=== PATIENT | male | born 1995 | race African-American/Black ===

== ENCOUNTER 2016-09-07 08:57 | Emergency (ER) | payer OTHER ==
[~2016-09-07] VITALS: Wt 70.3 kg
[~2016-09-07 08:57] MED LIST: AMOXICILLIN500 MG PO; BACTRIM DS 8001 TA1 PO; CEPHALEXIN500 M1 PO; CLINDAMYCIN HC300 MG PO; KEFLEX500 MG PO; ULTRAM50 MG PO
[2016-09-07 09:03] VITALS: BP 122/66
== END 2016-09-07 11:19 | disposition home or self-care (01) ==
LOC: ED 08:57
DX: Z20.2 Contact with and (suspected) exposure to infections with a predominantly sexual mode of transmission (principal); Z91.013 Allergy to seafood

== ENCOUNTER 2017-08-28 19:54 | Emergency (ER) | payer OTHER ==
[~2017-08-28] VITALS: Ht 172.7 cm; Wt 71.7 kg
[2017-08-28 19:57] VITALS: BP 130/82
== END 2017-08-28 20:14 | disposition home or self-care (01) ==
LOC: ED 19:54
DX: R11.2 Nausea with vomiting, unspecified (principal); R10.32 Left lower quadrant pain; F17.200 Nicotine dependence, unspecified, uncomplicated; Z91.013 Allergy to seafood

== ENCOUNTER 2017-09-14 18:13 | Emergency (ER) | payer OTHER ==
[~2017-09-14] VITALS: Ht 172.7 cm; Wt 68.0 kg
[2017-09-14 18:17] VITALS: BP 109/63
[2017-09-14] MEDS ORDERED: Peridex 473 ML473 ML PO (18:17)
[2017-09-14] MEDS ORDERED: PENICILLIN VK500 MG PO (18:17)
[2017-09-14] MEDS ORDERED: ZOFRAN4 MG PO (18:17)
[2017-09-14] MEDS ORDERED: NAPROSYN500 MG PO (18:17)
== END 2017-09-14 18:23 | disposition home or self-care (01) ==
LOC: ED 18:13
DX: K02.9 Dental caries, unspecified (principal); Z91.013 Allergy to seafood

== ENCOUNTER 2018-11-07 13:12 | Emergency (ER) | payer SELFPAY ==
[~2018-11-07] VITALS: Ht 172.7 cm; Wt 65.8 kg
[~2018-11-07 13:12] MED LIST changes: +NAPROSYN500 MG PO; +PENICILLIN VK500 MG PO; +Peridex 473 ML473 ML PO; +ZOFRAN4 MG PO
[2018-11-07 13:15] VITALS: BP 121/61
[2018-11-07 14:00] LABS: BILIRUBIN NEGATIVE (NEGATIVE); BLOOD 1+ (NEGATIVE); CLARITY CLEAR (CLEAR); COLOR YELLOW (YELLOW); GLUCOSE NEGATIVE (NEGATIVE); KETONE 2+ (NEGATIVE); LEUKO ESTERASE NEGATIVE (NEGATIVE); NITRITE NEGATIVE (NEGATIVE)
[2018-11-07 14:11] LABS: RBC 16-20 rbc/hpf (0-2)
[2018-11-11 03:04] LABS: GONOCOCCUS BY NAA Negative (Negative)
== END 2018-11-07 15:34 | disposition home or self-care (01) ==
LOC: ED 13:12
PROVIDERS: Nurse Practitioner Family
DX: Z20.2 Contact with and (suspected) exposure to infections with a predominantly sexual mode of transmission (principal); F17.200 Nicotine dependence, unspecified, uncomplicated; Z79.899 Other long term (current) drug therapy; Z91.013 Allergy to seafood

== ENCOUNTER 2019-09-30 13:23 | Emergency (ER) | payer SELFPAY ==
[~2019-09-30] VITALS: Ht 172.7 cm; Wt 68.0 kg
[2019-09-30 13:30] VITALS: BP 117/55
== END 2019-09-30 17:40 | disposition home or self-care (01) ==
LOC: ED 13:23
DX: S27.818A Other injury of esophagus (thoracic part), initial encounter (principal); Z79.899 Other long term (current) drug therapy; Z91.013 Allergy to seafood; Z79.2 Long term (current) use of antibiotics; X58.XXXA Exposure to other specified factors, initial encounter; Y93.89 Activity, other specified; Y92.89 Other specified places as the place of occurrence of the external cause; Y99.8 Other external cause status

== ENCOUNTER 2020-09-22 20:44 | Emergency (ER) | payer OTHER ==
[~2020-09-22] VITALS: Ht 172.7 cm; Wt 68.0 kg
[2020-09-22 21:16] VITALS: BP 104/61
[2020-09-22] MEDS ORDERED: CYCLOBENZAPRINE5 M3 PO (21:36)
== END 2020-09-22 21:46 | disposition home or self-care (01) ==
LOC: ED 20:44
DX: S39.012A Strain of muscle, fascia and tendon of lower back, initial encounter (principal); Z91.013 Allergy to seafood; X50.0XXA Overexertion from strenuous movement or load, initial encounter; Y93.89 Activity, other specified; Y92.69 Other specified industrial and construction area as the place of occurrence of the external cause; Y99.9 Unspecified external cause status

== ENCOUNTER 2021-01-03 21:58 | Emergency (ER) | payer OTHER ==
[~2021-01-03] VITALS: Ht 172.7 cm; Wt 68.9 kg
[~2021-01-03 21:58] MED LIST changes: +CYCLOBENZAPRINE5 M3 PO
[2021-01-03 22:05] VITALS: BP 106/53
[2021-01-03] MEDS ORDERED: IBU800 MG PO (22:45)
[2021-01-03] MEDS ORDERED: AMOXICILLIN500 M3 PO (22:45)
== END 2021-01-03 23:22 | disposition home or self-care (01) ==
LOC: ED 21:58
DX: K04.7 Periapical abscess without sinus (principal)

== ENCOUNTER 2021-02-10 19:02 | Emergency (ER) | payer OTHER ==
[~2021-02-10] VITALS: Ht 172.7 cm; Wt 68.0 kg
[~2021-02-10 19:02] MED LIST changes: +AMOXICILLIN500 M3 PO; +IBU800 MG PO
[2021-02-10 19:18] VITALS: BP 101/53
== END 2021-02-10 20:21 | disposition home or self-care (01) ==
LOC: ED 19:02
DX: R51.9 Headache, unspecified (principal); R42 Dizziness and giddiness; Z91.013 Allergy to seafood

== ENCOUNTER 2021-02-22 21:15 | Emergency (ER) | payer OTHER ==
[~2021-02-22] VITALS: Ht 172.7 cm; Wt 68.0 kg
[2021-02-22 21:25] VITALS: BP 113/66
[2021-02-22] MEDS ORDERED: Motrin,Rufen800 MG PO (21:33)
[2021-02-22] MEDS ORDERED: AMOXICILLIN500 M2 PO (21:33)
== END 2021-02-22 21:50 | disposition home or self-care (01) ==
LOC: ED 21:15
DX: K08.89 Other specified disorders of teeth and supporting structures (principal); Z91.013 Allergy to seafood

== ENCOUNTER 2022-04-07 19:37 | Emergency (ER) | payer MEDICAID ==
[~2022-04-07] VITALS: Ht 172.7 cm; Wt 72.6 kg
[~2022-04-07 19:37] MED LIST changes: +AMOXICILLIN500 M2 PO; +Motrin,Rufen800 MG PO
[2022-04-07 19:51] VITALS: BP 116/68
[2022-04-07 21:01] LABS: BILIRUBIN Negative (Negative); BLOOD 2+ (Negative); CLARITY Cloudy (Clear); COLOR Yellow (Yellow); GLUCOSE Negative (Negative); KETONE 1+ (Negative); LEUKO ESTERASE Negative (Negative); NITRITE Negative (Negative); PH 5.5 (4.5-8.0)
[2022-04-07 21:12] LABS: BACTERIA 1+; EPITHELIAL CELLS 0-2
[2022-04-07] MEDS ORDERED: VIBRAMYCIN100 MG PO (21:30)
[2022-04-07] MEDS ORDERED: METHOCARBAMOL500 M1 PO (21:30)
[2022-04-07] MEDS ORDERED: IBUPROFEN600 MG PO (21:30)
[2022-04-12] MEDS ORDERED: IBUPROFEN600 MG PO (14:26)
[2022-04-12] MEDS ORDERED: VIBRA-TAB100 MG PO (14:26)
[2022-04-12] MEDS ORDERED: METHOCARBAMOL500 M1 PO (14:26)
== END 2022-04-07 21:35 | disposition home or self-care (01) ==
LOC: ED 19:37
PROVIDERS: Physician Assistant
DX: S33.5XXA Sprain of ligaments of lumbar spine, initial encounter (principal); R30.0 Dysuria; R35.0 Frequency of micturition; Z91.013 Allergy to seafood; X50.1XXA Overexertion from prolonged static or awkward postures, initial encounter; Y93.89 Activity, other specified; Y92.89 Other specified places as the place of occurrence of the external cause; Y99.8 Other external cause status

== ENCOUNTER 2022-05-21 16:00 | Emergency (ER) | payer MEDICAID ==
[~2022-05-21] VITALS: Wt 68.0 kg
[~2022-05-21 16:00] MED LIST changes: +IBUPROFEN600 MG PO; +METHOCARBAMOL500 M1 PO; +VIBRA-TAB100 MG PO; +VIBRAMYCIN100 MG PO
[2022-05-21 16:14] VITALS: BP 136/93
[2022-05-21] MEDS ORDERED: VIBRAMYCIN100 MG PO (18:17)
[2022-05-24 06:08] LABS: HEPATITIS B SURFACE AG Negative (Negative)
== END 2022-05-21 19:01 | disposition home or self-care (01) ==
LOC: ED 16:00
PROVIDERS: Nurse Practitioner Family
DX: S51.831A Puncture wound without foreign body of right forearm, initial encounter (principal); Z91.013 Allergy to seafood; W27.3XXA Contact with needle (sewing), initial encounter; Y93.89 Activity, other specified; Y92.89 Other specified places as the place of occurrence of the external cause; Y99.8 Other external cause status

== ENCOUNTER 2022-10-02 09:46 | Emergency (ER) | payer MEDICAID ==
[~2022-10-02] VITALS: Ht 172.7 cm; Wt 70.3 kg
[2022-10-02 10:08] VITALS: BP 100/54
[2022-10-02] MEDS ORDERED: AMOXICILLIN500 M3 PO (10:19)
[2022-10-02] MEDS ORDERED: NICODERM CQ1 EAC2 TD (10:19)
== END 2022-10-02 10:30 | disposition home or self-care (01) ==
LOC: ED 09:46
DX: K04.7 Periapical abscess without sinus (principal); F17.210 Nicotine dependence, cigarettes, uncomplicated; Z91.013 Allergy to seafood

== ENCOUNTER 2022-11-21 04:30 | Emergency (ER) | payer MEDICAID ==
[~2022-11-21] VITALS: Ht 172.7 cm; Wt 63.5 kg
[2022-11-21 04:30] VITALS: BP 116/82
[~2022-11-21 04:30] MED LIST changes: +NICODERM CQ1 EAC2 TD
== END 2022-11-21 04:50 | disposition home or self-care (01) ==
LOC: ED 04:30
DX: L65.9 Nonscarring hair loss, unspecified (principal); Z91.013 Allergy to seafood

== ENCOUNTER 2023-04-09 13:58 | Emergency (ER) | payer MEDICAID ==
[~2023-04-09] VITALS: Wt 68.0 kg
[2023-04-09 14:16] VITALS: BP 107/65
== END 2023-04-09 16:48 | disposition left against medical advice (07) ==
LOC: ED 13:58
DX: K08.89 Other specified disorders of teeth and supporting structures (principal); Z00.00 Encounter for general adult medical examination without abnormal findings; Z91.013 Allergy to seafood; Z53.21 Procedure and treatment not carried out due to patient leaving prior to being seen by health care provider

== ENCOUNTER 2023-04-11 23:25 | Emergency (ER) | payer MEDICAID ==
[~2023-04-11] VITALS: Ht 172.7 cm; Wt 68.0 kg
[2023-04-11 23:32] VITALS: BP 106/59
[2023-04-11] MEDS ORDERED: NEURONTIN100 MG PO (23:35)
== END 2023-04-11 23:58 | disposition home or self-care (01) ==
LOC: ED 23:25
DX: K02.9 Dental caries, unspecified (principal); N48.89 Other specified disorders of penis; Z20.2 Contact with and (suspected) exposure to infections with a predominantly sexual mode of transmission; Z91.013 Allergy to seafood; Z79.899 Other long term (current) drug therapy

== ENCOUNTER 2023-07-30 11:23 | Emergency (ER) | payer MEDICAID ==
[~2023-07-30] VITALS: Ht 172.7 cm; Wt 68.9 kg
[~2023-07-30 11:23] MED LIST changes: +NEURONTIN100 MG PO
[2023-07-30 11:30] VITALS: BP 109/63
[2023-07-30] MEDS ORDERED: Doxycycline Hyclate 100 MG CAP PO ONE (11:40)
== END 2023-07-30 11:44 | disposition home or self-care (01) ==
LOC: ED 11:23
DX: L03.211 Cellulitis of face (principal); Z91.013 Allergy to seafood

== ENCOUNTER 2024-01-30 20:44 | Emergency (ER) | payer MEDICAID ==
[~2024-01-30] VITALS: Ht 172.7 cm; Wt 71.7 kg
[2024-01-30 21:01] VITALS: BP 115/87
[2024-01-30 22:54] LABS: BILIRUBIN Negative (Negative); BLOOD 1+ (Negative); CLARITY Clear (Clear); COLOR Yellow (Yellow); GLUCOSE Negative (Negative); KETONE Negative (Negative); LEUKO ESTERASE Trace (Negative); NITRITE Negative (Negative); SPECIFIC GRAVITY 1.015 (1.001-1.030)
[2024-01-30 23:03] LABS: RBC 16-20 rbc/hpf (0-2)
[2024-01-30] MEDS ORDERED: AZITHROMYCIN 250 MG TAB PO ONE (23:10)
== END 2024-01-30 23:11 | disposition home or self-care (01) ==
LOC: ED 20:44
PROVIDERS: Internal Medicine
DX: R30.0 Dysuria (principal); Z91.013 Allergy to seafood

== ENCOUNTER 2024-04-17 00:40 | Emergency (ER) | payer MEDICAID ==
[~2024-04-17] VITALS: Ht 172.7 cm; Wt 53.5 kg
[2024-04-17 00:40] VITALS: BP 118/80
[2024-04-17] MEDS ORDERED: LORazepam 1 MG TAB PO ONE (01:00)
== END 2024-04-17 01:09 | disposition home or self-care (01) ==
LOC: ED 00:40
DX: F41.9 Anxiety disorder, unspecified (principal); Z91.013 Allergy to seafood

== ENCOUNTER 2024-12-09 21:42 | Emergency (ER) | payer SELFPAY ==
[~2024-12-09] VITALS: Wt 65.8 kg
[2024-12-09 21:56] VITALS: BP 110/68
[2024-12-09] MEDS ORDERED: CLINDAMYCIN HC300 MG PO (22:19)
[2024-12-09] MEDS ORDERED: CLINDAMYCIN HCL 300 MG CAPSULE PO ONE (22:25)
== END 2024-12-09 22:24 | disposition home or self-care (01) ==
LOC: ED 21:42
DX: S31.103A Unspecified open wound of abdominal wall, right lower quadrant without penetration into peritoneal cavity, initial encounter (principal); K04.7 Periapical abscess without sinus; F10.90 Alcohol use, unspecified, uncomplicated; Z91.013 Allergy to seafood; W57.XXXA Bitten or stung by nonvenomous insect and other nonvenomous arthropods, initial encounter; Y93.89 Activity, other specified; Y92.89 Other specified places as the place of occurrence of the external cause; Y99.8 Other external cause status; Y90.9 Presence of alcohol in blood, level not specified